=== PATIENT | female | born 1965 | race African-American/Black ===

== ENCOUNTER 2017-02-18 12:55 | Emergency (ER) | payer SELFPAY ==
[2017-02-18] VITALS (7 sets, daily range): BP systolic 100–246; BP diastolic 56–119; PULSE 54–70; RESP 16–19; TEMP 98.7; O2SAT 98–100
[~2017-02-18] VITALS: Ht 154.9 cm; Wt 83.7 kg
[2017-02-18] MEDS ORDERED: LEVO-171 PO (13:14)
[2017-02-18] MEDS ORDERED: LOSA50TA PO (13:14)
[2017-02-18] MEDS ORDERED: SODIUM CHLORIDE 0.9% FLUSH 10 ML FLUSH IVF PRN (13:15)
[2017-02-18] MEDS ORDERED: hydrALAZINE HCL 20 MG/ML VIAL IV PUSH ONE (13:15)
--- NOTE | 2017-02-18 13:16 | PD ---
HPI Chief Complaint: Anxiety Time Seen by Provider: 13:06 Travel History International Travel<30 days: No Contact w/Intl Traveler<30days: No Traveled to known affect area: No History of Present Illness HPI 52-year-old female with history of HTN, HLD, status post thyroidectomy with complaint of anxiety. Patient states that since her thyroidectomy in 1995 she has had intermittent spells where she feels anxious. She describes this as a tightness in the chest, shortness of breath and a subglottic sensation. Patient states that he eats time this happens, or her thyroid medication is too high and needs to be readjusted. She sees Dr. Crowell's nurse practitioner. She does not know the last time her thyroid was checked. She states that over the course of the last several weeks she's been having some persistent tightness in the chest, intermittent shortness of breath. She has not noticed any provocative or relieving factors. She denies known history of coronary disease. Her symptoms are not seem to be made worse with exertion. Her blood pressure was notably high in triage. Patient is on losartan and used to be on Norvasc but ran out of this 2 months ago and has not been able to get it refilled. PFSH Past Medical History High Cholesterol: Yes Diminished Hearing: No Hypertension: Yes Thyroid Disease: Yes Tetanus Vaccination: > 5 Years Influenza Vaccination: No ?: Not LMP: [employer] Past Surgical History Appendectomy: Yes Section: Yes (X 2) Endocrine Surgery: Yes (THYROID) Hysterectomy: Yes Social History Alcohol Use: Yes (WINE, OCCASIONALLY) Tobacco Use: No (QUIT 1999) Substance Use: No Allergies-Medications (Allergen,Severity, Reaction): Coded Allergies: No Known Allergies (Unverified , 02/18/17) Reported Meds & Prescriptions Reported Meds & Active Scripts Active Reported Levothyroxine (Levothyroxine Sodium) 300 Mcg Tab 300 Mcg PO DAILY Losartan (Losartan Potassium) 50 Mg Tab 50 Mg PO BID Review of Systems Except as stated in HPI: all other systems reviewed are Neg Physical Exam Narrative GENERAL: Well-appearing female in no acute distress SKIN: Focused skin assessment warm/dry. HEAD: Atraumatic. Normocephalic. EYES: Pupils equal and round. No scleral icterus. No injection or drainage. ENT: No nasal bleeding or discharge. Mucous membranes pink and moist. NECK: Trachea midline. No JVD. CARDIOVASCULAR: Regular rate and rhythm. No murmur appreciated. Hypertensive RESPIRATORY: No accessory muscle use. Clear to auscultation. Breath sounds equal bilaterally. GASTROINTESTINAL: Abdomen soft, non-tender, nondistended. Obese MUSCULOSKELETAL: No obvious deformities. No edema. NEUROLOGICAL: Awake and alert. Normal speech. PSYCHIATRIC: Appropriate mood and affect; insight and judgment normal. Data Data Last Documented VS Vital Signs Date Time Temp Pulse Resp B/P Pulse Ox O2 Delivery O2 Flow Rate FiO2 02/18/17 15:40 70 16 173/69 100 Room Air 02/18/17 12:56 98.7 Orders Electrocardiogram (02/18/17 13:12) Basic Metabolic Panel (Bmp) (02/18/17 13:12) Complete Blood Count With Diff (02/18/17 13:12) Magnesium (Mg) (02/18/17 13:12) Troponin I (02/18/17 13:12) Chest, Single Ap (02/18/17 13:12) Ecg Monitoring (02/18/17 13:12) Bilateral Bp Monitoring (02/18/17 13:12) Iv Access Insert/Monitor (02/18/17 13:12) Oximetry (02/18/17 13:12) Sodium Chloride 0.9% Flush (Ns Flush) (02/18/17 13:15) Thyroid Stimulating Hormone (02/18/17 13:12) Free T3 (02/18/17 13:12) Free Thyroxine (T4) (02/18/17 13:12) Hydralazine Inj (Apresoline Inj) (02/18/17 13:15) Amlodipine (Norvasc) (02/18/17 13:15) Sodium Chlorid 0.9% 500 Ml Inj (Ns 500 M (02/18/17 14:30) Labs Laboratory Tests Test 02/18/17 13:20 White Blood Count 8.3 TH/MM3 Red Blood Count 5.06 MIL/MM3 Hemoglobin 14.0 GM/DL Hematocrit 41.8 % Mean Corpuscular Volume 82.6 FL Mean Corpuscular Hemoglobin 27.6 PG Mean Corpuscular Hemoglobin 33.4 % Concent Red Cell Distribution Width 11.6 % Platelet Count 269 TH/MM3 Mean Platelet Volume 8.1 FL Neutrophils (%) (Auto) 52.1 % Lymphocytes (%) (Auto) 37.8 % Monocytes (%) (Auto) 6.5 % Eosinophils (%) (Auto) 3.0 % Basophils (%) (Auto) 0.6 % Neutrophils # (Auto) 4.5 TH/MM3 Lymphocytes # (Auto) 3.1 TH/MM3 Monocytes # (Auto) 0.5 TH/MM3 Eosinophils # (Auto) 0.2 TH/MM3 Basophils # (Auto) 0.0 TH/MM3 CBC Comment DIFF FINAL Differential Comment Sodium Level 145 MEQ/L Potassium Level 3.5 MEQ/L Chloride Level 108 MEQ/L Carbon Dioxide Level 26.6 MEQ/L Anion Gap 10 MEQ/L Blood Urea Nitrogen 13 MG/DL Creatinine 1.00 MG/DL Estimat Glomerular Filtration 70 ML/MIN Rate Random Glucose 115 MG/DL Calcium Level 9.0 MG/DL Magnesium Level 2.0 MG/DL Troponin I LESS THAN 0.02 NG/ML Free Thyroxine 2.38 NG/DL Free Triiodothyronine (T3) 4.95 PG/ML pg/dL Thyroid Stimulating Hormone LESS THAN 3rd Gen 0.005 uIU/ML MDM Medical Decision Making Medical Screen Exam Complete: Yes Emergency Medical Condition: Yes Medical Record Reviewed: Yes Differential Diagnosis 52-year-old female with history of HTN, HLD, thyroidectomy here with complaint of intermittent chest tightness, shortness of breath and subglottic sensation over the course of the last several weeks. Differential includes ACS, anxiety, new onset heart failure, GERD, iatrogenic hyperthyroidism. Narrative Course Patient placed on monitor, IV established and blood obtained. Twelve-lead EKG showed sinus bradycardia, rate 52. Some sinus arrhythmia. Patient has T-wave inversions in inferior leads 3, and to a lesser extent aVF. No ST abnormalities. Patient was given 20 mg hydralazine IV and 10 mg oral Norvasc. Portal chest x-ray obtained and by my read shows no acute abnormalities. Patient had marked improvement in her blood pressure after the before administration, in fact almost too much where she is now borderline hypotensive with systolics in the 100 and symptomatic with some lightheadedness. She was given 500 mL normal saline bolus with improvement of her symptoms. CBC, BMP, magnesium, troponin, TSH, free T3/T4 notable for undetectable TSH, free T4 2 0.38, free T3 4 0.95. Patient will be instructed to hold her Synthroid and will be started on propranolol for a combination hyperthyroidism and blood pressure management. Instructed to follow-up with PCP. Diagnosis Primary Impression: Iatrogenic hyperthyroidism Referrals: Alli Crowell MD 2 days Additional Instructions: Hold Synthroid. Propranolol as prescribed. Follow-up with primary care physician for further management of thyroid medications. Med/Other Pt SpecificInfo: Prescription(s) given, Med Stopped Scripts Propranolol 40 Mg Tab40 Mg PO Q12HR #60 TAB Ref 0 Prov:Iram Humphries MD 02/18/17 Disposition: 01 DISCHARGE HOME Condition: Stable Iram Humphries MD Feb 18, 2017 13:16
[2017-02-18 13:37] LABS: AUTOMATED NEUTROPHIL # 4.5 TH/MM3 (1.8-7.7); BASOPHIL % 0.6 % (0.0-2.0); EOSINOPHIL # 0.2 TH/MM3 (0-0.4); HEMATOCRIT 41.8 % (35.0-46.0); HEMO FLAGS DIFF FINAL; LYMPH % 37.8 % (9.0-44.0); LYMPHOCYTE # 3.1 TH/MM3 (1.0-4.8); MEAN CELL VOLUME 82.6 FL (80.0-100.0); MEAN CORPUSCULAR HEMOGLOBIN 27.6 PG (27.0-34.0); MEAN CORPUSCULAR HGB CONC 33.4 % (32.0-36.0); MONO % 6.5 % (0.0-8.0); NEUT % 52.1 % (16.0-70.0); PLATELET COUNT 269 TH/MM3 (150-450); RED BLOOD COUNT 5.06 MIL/MM3 (4.00-5.30); RED CELL DISTRIBUTION WIDTH 11.6 % (11.6-17.2); WHITE BLOOD COUNT 8.3 TH/MM3 (4.0-11.0)
--- NOTE | 2017-02-18 13:39 | RADHPO ---
EXAM DATE/TIME: 02/18/2017 13:29 [facility] COMPARISON: No previous studies available for comparison. INDICATIONS : Chest pain, short of breath MEDICAL HISTORY : None. SURGICAL HISTORY : Right shoulder ENCOUNTER: Initial ACUITY: 1 day PAIN SCORE: 6/10 LOCATION: Bilateral chest FINDINGS: The lungs are clear without infiltrate, nodule, or mass. There is no appreciable pleural effusion fo r technique. Heart and mediastinum are unremarkable. CONCLUSION: No acute cardiopulmonary disease. Richelle Zamorano MD on February 18, 2017 at 13:37 Board Certified Radiologist. This report was verified electronically.
[2017-02-18 13:46] LABS: CHLORIDE 108 MEQ/L (98-107); POTASSIUM 3.5 MEQ/L (3.5-5.1); SODIUM (NA) 145 MEQ/L (136-145)
[2017-02-18 13:49] LABS: ANION GAP 10 MEQ/L (5-15); BICARBONATE 26.6 MEQ/L (21.0-32.0); BLOOD UREA NITROGEN 13 MG/DL (7-18)
[2017-02-18 13:52] LABS: GLOMERULAR FILTRATION RATE 70 ML/MIN (>89)
[2017-02-18] MEDS ORDERED: SODIUM CHLORID 0.9% 500 ML INJ 500 ML IV ONE (14:30)
[2017-02-18 15:53] LABS: FREE T3 4.95 PG/ML (2.18-3.98); FREE T4 2.38 NG/DL (0.76-1.46)
[2017-02-18] MEDS ORDERED: PROP40TA3 PO (15:57)
[2017-02-18] MEDS ORDERED: AMLO10 PO (16:03)
[2017-02-18] MEDS ORDERED: HYDR25TA5 PO (16:03)
--- NOTE | 2017-02-19 15:26 | EKG ---
Date Performed: 02/18/2017 Time Performed: 13:17:12 PTAGE: 52 years EKG: Sinus bradycardia with sinus arrhythmia Extensive T wave changes are nonspecific Borderline ECG NO PREVIOUS TRACING DOCTOR: Naldo Fritz Interpretating Date/Time 02/19/2017 15:24:34
== END 2017-02-18 16:26 | disposition home or self-care (01) ==
LOC: PHED 12:55
DX: E05.80 Other thyrotoxicosis without thyrotoxic crisis or storm (principal); R07.89 Other chest pain; R06.02 Shortness of breath; E07.9 Disorder of thyroid, unspecified; I10 Essential (primary) hypertension; R94.31 Abnormal electrocardiogram [ECG] [EKG]; E78.5 Hyperlipidemia, unspecified
CPT/HCPCS: 71010; 80048; 83735; 84439; 84443; 84481; 84484; 85025; 93005; 96361; 96374; 99284; J0360; J7040